=== PATIENT | female | born 1995 | race Caucasian/White ===

== ENCOUNTER 2019-12-28 06:52 | Day surgery (SDC) | payer BC ==
[~2019-12-28] VITALS: Ht 403.9 cm; Wt 122.5 kg
[2019-12-28 07:29] LABS: HEMATOCRIT 40.3 % (36.0-48.0); HEMOGLOBIN 13.3 g/dL (12-16); MCH 28.7 pg (26.0-34.0); MCV 86.9 fL (80.0-100.0); MEAN PLATELET VOLUME 9.8 fL (7.4-10.4); RBC 4.64 10x6/uL (4.00-5.40); RDW 13.7 % (11.5-14.5); WBC 6.8 10x3/uL (4.8-10.8)
[2019-12-28 07:54] LABS: HCG SERUM NEGATIVE (NEGATIVE)
[2019-12-28 08:39] VITALS: BP 115/74; Ht 403.9 cm; Wt 122.5 kg
--- NOTE | 2019-12-28 15:29 | NUR ---
1240 IV D/'D WITH CANNULA INTACT, PRESSURE HELD AND DRSG PLACED. DISCHARGE INSTRUCTIONS GIVEN AND PT VERBALIZED AN UNDERSTANDING. OPERATIVE ARM AND DRSG UNCHANGED. DISCHARGED IN STABLE CONDITION
--- NOTE | 2019-12-30 07:57 | OP ---
PATIENT NAME: CAROL SALINAS MEDICAL RECORD: [id number] :97 LOCATION:[facility] ADMISSION DATE: SURGEON: SUHAIL HUA DO DATE OF OPERATION: 12/28/2019 PROCEDURE PERFORMED: Left volar wrist ganglion cyst excision. PREOPERATIVE DIAGNOSIS: Ganglion cyst, left wrist. POSTOPERATIVE DIAGNOSIS: Ganglion cyst, left wrist. INDICATIONS: Ms. Salinas is a 24-year-old female who has had some quite painful left wrist for quite some time. She had an MRI showing a ganglion cyst there. It was right underneath the radial artery and between that and the flexor carpi radialis tendon. I informed her of the risks including damage to the radial artery, infection, bleeding, need for further surgery, recurrence of the cyst. She is aware of all that and signed the consent. SURGEON: Suhail Hua MD DESCRIPTION OF PROCEDURE: The patient was taken to the operative suite, laid in supine position where general anesthetic and LMA was placed. She was given 2 grams Ancef preop and the left upper extremity was then prepped and draped in sterile fashion. Timeout was performed, everyone was in agreement as to the correct site, side, patient, and procedure. I then began by making an incision over the radial aspect on the volar side of the wrist just radial to the flexor carpi radialis tendon. I then made blunt dissection down to the cyst, carefully pulling the radial artery out of the way and removed the cyst and went down to the capsule and then used a bipolar to close the gap in the hole or the hole that the rent and the capsule had made and coagulating vessel in the area. Tourniquet was then let down, any bleeding was coagulated with bipolar. Kim Daniels, certified surgical orderly, then closed the site with 5-0 Monocryl in an inverted interrupted fashion. Steri-Strips, Adaptic, 4 x 4, cast padding and Coban was lightly wrapped on the wrist. The tourniquet was used for 14 minutes at the left upper extremity, was exsanguinated prior to starting to 250 mmHg, the tourniquet was inflated. She was awakened and taken to recovery in stable condition. BLOOD LOSS: Minimal. COMPLICATIONS: None. TRANSINT:[id number] Voice Confirmation ID: [id number] DOCUMENT ID: [id number] SUHAIL HUA DO at 0757 CC: [id number] DICTATION DATE: 12/28/19 1342 ELECTRICAL INSPECTOR: 12/28/19 2300 [facility] 12/28/19 [id number] [place] [id number]
== END 2019-12-28 12:40 | disposition home or self-care (01) ==
LOC: D.OPS 06:52 → D.PAN 07:00 → D.OPS 07:00
PROVIDERS: Anesthesiology; ATTEND Orthopaedic Surgery
DX: M67.432 Ganglion, left wrist (principal)